=== PATIENT | male | born 1980 | race Caucasian/White ===

== ENCOUNTER 2018-05-27 20:58 | Emergency (ER) | payer OTHER ==
[2018-05-28] MEDS: DIPHTH/TET/ACEL PERTUSS (ADULT) 0.5 ML VIAL IM* (03:55)
[2018-05-28] MEDS: IBUPROFEN 600 MG TAB PO (03:55)
[2018-05-28] MEDS: CEFAZOLIN 1 GM INJ IM (03:56)
[2018-05-28] MEDS: LIDOCAINE 1% (MPF) 5 ML VIAL INJ (04:14)
== END 2018-05-28 06:40 | disposition left against medical advice (07) ==
LOC: FTE 20:58
DX: S51.812A Laceration without foreign body of left forearm, initial encounter (principal); W22.8XXA Striking against or struck by other objects, initial encounter; Y92.9 Unspecified place or not applicable; Z23 Encounter for immunization
CPT/HCPCS: 12002; 73090; 90471; 90715; 96372; 99284-25